=== PATIENT | female | born 1975 | race Caucasian/White ===

== ENCOUNTER 2016-11-08 17:31 | Emergency (ER) | payer SELFPAY ==
[~2016-11-08 17:31] MED LIST: NO MEDS; TRAMADOL HCL50 M2 PO
[2016-11-08] MEDS ORDERED: FIORICET 50-301 EAC1 PO (17:43)
[2016-11-08] MEDS ORDERED: ZOFRAN4 M2 PO (21:31)
[2017-02-14] MEDS ORDERED: TRAMADOL HCL50 M2 PO (22:54)
== END 2016-11-08 22:05 ==
LOC: EDMED 17:31
DX: G43.909 Migraine, unspecified, not intractable, without status migrainosus (principal); Z90.49 Acquired absence of other specified parts of digestive tract; Z88.8 Allergy status to other drugs, medicaments and biological substances; F17.200 Nicotine dependence, unspecified, uncomplicated
CPT/HCPCS: J1170; J2405; J7030